=== PATIENT | male | born 1980 | race Caucasian/White ===

== ENCOUNTER 2023-03-03 17:29 | Emergency (ER) | payer SELFPAY ==
[2023-03-03 17:38] VITALS: BP 101/64; PULSE 85; RESP 18; TEMP 98; BMI 24.4
[2023-03-03] MEDS ORDERED: DIPHTH,PERTUSS(ACELL),TET 0.5 ML DISP.SYRIN IM ONE ×2 (18:34→19:06)
[2023-03-03] MEDS ORDERED: AMOX TR/POT CLAV 875MG/125MG TABLETS (FP) PO ONE (19:14)
[2023-03-03] MEDS ORDERED: ACETAMINOPHEN 500 MG TABLET (FP) PO ONE (19:14)
[2023-03-03] MEDS ORDERED: AMOX TR/POT CLAV 875MG/125MG TABLETS (FP) ONE (19:21)
[2023-03-03] MEDS ORDERED: ACETAMINOPHEN 500 MG TABLET (FP) ONE (19:21)
== END 2023-03-03 20:08 | disposition home or self-care (01) ==
LOC: JERFT 17:29
PROC: 0HQGXZZ Repair Left Hand Skin, External Approach (ICD-10-PCS; principal; 2023-03-03)
PROC: 3E0234Z Introduction of Serum, Toxoid and Vaccine into Muscle, Percutaneous Approach (ICD-10-PCS; 2023-03-03)
DX: S61.211A Laceration without foreign body of left index finger without damage to nail, initial encounter (principal); W27.4XXA Contact with kitchen utensil, initial encounter; Y93.G1 Activity, food preparation and clean up
CPT/HCPCS: 90715; 99284-25